=== PATIENT | male | born 1950 | race American Indian/Alaskan Native ===

== ENCOUNTER 2020-06-11 19:09 | Emergency (ER) | payer MEDICARE ==
--- NOTE | 2020-06-11 20:14 | Emergency Department Report ---
ED General Adult HPI - General Chief complaint: Pain General Stated complaint: LEG PAIN Time Seen by Provider: 06/11/20 20:01 Source: patient, EMS Mode of arrival: Stretcher Limitations: Physical Limitation - History of Present Illness Initial comments: Chief complaint: "I have been having spasms for the last 2 weeks." HPI: This is a 69-year-old male with history of hypertension, gout, diabetes mellitus who presents with muscle spasms and bone pain for the past 2 weeks. He has been bedbound for the last 3 to 4 days. He also has had hiccups for the past several days. He denies fever. He does have chills. He denies chest pain shortness of breath abdominal pain. He arrives via EMS. PCP Dr. Moncho Troncoso [facility] -: Gradual, week(s) (2 weeks) Location: left, right, upper extremity, lower extremity Severity scale (0 -10): 6 Quality: other (Muscle spasms, bone pain) Consistency: constant Improves with: none Worsens with: other (Worse with touch his extremities are very tender to touch) Associated Symptoms: malaise, other (Hiccups) Treatments Prior to Arrival: none - Related Data Allergies Allergy/AdvReac Type Severity Reaction Status Date / Time No Known Allergies Allergy Verified 06/11/20 22:42 ED Review of Systems ROS: Stated complaint: LEG PAIN Other details as noted in HPI Comment: All other systems reviewed and negative Constitutional: chills, malaise. denies: fever Respiratory: denies: cough Cardiovascular: denies: chest pain Gastrointestinal: denies: abdominal pain, nausea, vomiting Musculoskeletal: myalgia ED Past Medical Hx - Past Medical History Previous Medical History?: Yes Hx Hypertension: Yes Hx Diabetes: Yes Hx Arthritis: Yes (gout) - Surgical History Past Surgical History?: Yes Additional Surgical History: L hip sx, L knee sx, colostomy, colostomy reversal in 1997 - Social History Smoking Status: Never Smoker Substance Use Type: None ED Physical Exam - General Limitations: Physical Limitation General appearance: alert, in no apparent distress, other (Constant hiccuping) - Head Head exam: Present: atraumatic, normocephalic - Eye Eye exam: Present: normal appearance - ENT ENT exam: Present: mucous membranes dry, other (Very dry mucous membranes without exudates or lesions in the oropharynx) - Neck Neck exam: Present: normal inspection, full ROM - Respiratory Respiratory exam: Present: normal lung sounds bilaterally. Absent: respiratory distress, wheezes, rales, rhonchi - Cardiovascular Cardiovascular Exam: Present: regular rate, normal rhythm, normal heart sounds. Absent: systolic murmur, diastolic murmur, rubs, gallop - GI/Abdominal GI/Abdominal exam: Present: soft, normal bowel sounds. Absent: distended, tenderness, guarding, rebound - Rectal Rectal exam: Present: deferred - Extremities Exam Extremities exam: Present: normal inspection - Neurological Exam Neurological exam: Present: alert, oriented X3 - Psychiatric Psychiatric exam: Present: normal affect, normal mood - Skin Skin exam: Present: warm, dry, intact, normal color. Absent: rash ED Course Vital Signs 06/11/20 06/11/20 06/11/20 19:27 22:54 23:34 Temperature 99.1 F 100.2 F H Pulse Rate 88 94 H Respiratory 16 19 16 Rate Blood Pressure 151/74 146/64 [Left] O2 Sat by Pulse 95 95 Oximetry 06/12/20 06/12/20 00:34 01:38 Temperature 100.2 F H Pulse Rate 98 H Respiratory 16 19 Rate Blood Pressure 122/80 [Left] O2 Sat by Pulse 96 Oximetry ED Medical Decision Making - Lab Data Result diagrams: 06/11/20 20:25 06/11/20 20:25 Laboratory Results - last 24 hr 06/11/20 06/11/20 06/11/20 20:25 20:25 20:25 WBC 19.9 H RBC 3.18 L Hgb 9.1 L Hct 28.7 L MCV 90 MCH 29 MCHC 32 RDW 18.3 H Plt Count 221 Lymph % (Auto) 6.8 L [place] % (Auto) 8.0 H Eos % (Auto) 0.1 Baso % (Auto) 0.2 Lymph # (Auto) 1.3 [place] # (Auto) 1.6 H Eos # (Auto) 0.0 Baso # (Auto) 0.0 Seg Neutrophils % 84.9 H Seg Neutrophils # 16.9 H Sodium 136 L Potassium 4.1 Chloride 100.3 Carbon Dioxide 19 L Anion Gap 21 BUN 65 H Creatinine 2.0 H Estimated GFR 33 BUN/Creatinine Ratio 33 Glucose 173 H Lactic Acid 2.20 H* Calcium 9.1 Total Bilirubin 0.80 AST 76 H ALT 40 Alkaline Phosphatase 112 Ammonia Total Creatine Kinase 2258 H Total Protein 8.3 H Albumin 2.7 L Albumin/Globulin Ratio 0.5 TSH Urine Bilirubin Urine RBC (Auto) U Epithel Cells (Auto) U Marijuana (THC) Screen 06/11/20 06/11/20 06/11/20 20:25 20:25 21:51 WBC RBC Hgb Hct MCV MCH MCHC RDW Plt Count Lymph % (Auto) [place] % (Auto) Eos % (Auto) Baso % (Auto) Lymph # (Auto) [place] # (Auto) Eos # (Auto) Baso # (Auto) Seg Neutrophils % Seg Neutrophils # Sodium Potassium Chloride Carbon Dioxide Anion Gap BUN Creatinine Estimated GFR BUN/Creatinine Ratio Glucose Lactic Acid Calcium Total Bilirubin AST ALT Alkaline Phosphatase Ammonia 73.0 H Total Creatine Kinase Total Protein Albumin Albumin/Globulin Ratio TSH 1.050 Urine Bilirubin Neg Urine RBC (Auto) 11.0 U Epithel Cells (Auto) 1.0 U Marijuana (THC) Screen 06/11/20 21:51 WBC RBC Hgb Hct MCV MCH MCHC RDW Plt Count Lymph % (Auto) [place] % (Auto) Eos % (Auto) Baso % (Auto) Lymph # (Auto) [place] # (Auto) Eos # (Auto) Baso # (Auto) Seg Neutrophils % Seg Neutrophils # Sodium Potassium Chloride Carbon Dioxide Anion Gap BUN Creatinine Estimated GFR BUN/Creatinine Ratio Glucose Lactic Acid Calcium Total Bilirubin AST ALT Alkaline Phosphatase Ammonia Total Creatine Kinase Total Protein Albumin Albumin/Globulin Ratio TSH Urine Bilirubin Urine RBC (Auto) U Epithel Cells (Auto) U Marijuana (THC) Screen Presumptive positive - Radiology Data Radiology results: report reviewed CT scan of the chest, abdomen, and pelvis without contrast INDICATION: malaise, hiccups, body aches. TECHNIQUE: All CT scans at this location are performed using the following dose modulation technique: Automated exposure control. Helical slices were obtained through the chest, abdomen, and pelvis. No contrast is administered. COMPARISON: None available. FINDINGS: Chest: There is mild dependent atelectasis on the right. The lungs are otherwise clear. There is no pneumothorax. On review of the mediastinum, there is no adenopathy. The heart size is normal. ABDOMEN: The liver, spleen, pancreas, adrenal glands, and right kidney show no acute abnormality. There are staghorn type calculi in the left kidney with calculi noted in calyces in the upper and lower pole. There is a 2.5 x 1.5 cm stone in the renal pelvis extending down to the ureteropelvic junction. There are no ureteral calculi. There are 2 ventral hernias above the level the umbilicus. These contain loops of small bowel. There is no obstruction or complication associated with these. There is bowel anastomosis on the left. There is no obstruction, inflammation, or free air. There are no abnormal fluid collections. Pelvis: There is no obstruction or inflammation. There are no abnormal fluid collections. On review of bone windows, no acute osseous abnormalities are seen. Degenerative changes are noted in the lower lumbar spine as well as in the lower cervical spine and both shoulders and hips. IMPRESSION: There are staghorn calculi noted in the left kidney there is mild dilatation of the left renal collecting system. There is a staghorn calculus in the left renal pelvis which extends to the ureteropelvic junction. There are 2 small ventral hernias containing loops of small bowel. There is no obstruction or complication associated with this. There is a small amount of atelectasis in the right lung base. CHEST 1 VIEW 06/11/2020 7:38 PM INDICATION / CLINICAL INFORMATION: Altered Mental Status. COMPARISON: None available. FINDINGS: SUPPORT DEVICES: None. HEART / MEDIASTINUM: No significant abnormality. LUNGS / PLEURA: No significant pulmonary or pleural abnormality. No pneumothorax. ADDITIONAL FINDINGS: No significant additional findings. IMPRESSION: 1. No acute findings. - Medical Decision Making Mr. Rojas presents with chills, muscle spasms, bone pain. Developed low- grade temperature here in the emergency department. I suspect sepsis due to infected stone. Patient has staghorn calculus with mild dilatation of the left renal collecting system. Next Patient received cefepime. Elevated CK likely reflective of patient's immobile status due to illness. I spoke with [facility] on-call outpatient physician who was unable to expedite transfer. 1. Infected stone staghorn calculus left kidney: Patient received IV cefepime 2. Acute prerenal injury due to vasomotor nephropathy, sepsis: Patient received IV fluid therapy, 3. Rhabdomyolysis: IV fluid therapy initiated, etiologies: Sepsis, immobility 4. Anemia: Patient denies bloody or dark stools. Unclear chronicity. I spoke with [facility] center nurse after requesting [facility]. Urologist on-call refused transfer. I spoke with Dr. Corley urologist [place] who recommended transfer to [facility] for nephrostomy tube insertion. 60 minutes of critical care time excluding procedures were used in the care of the patient. I came immediately to the bedside upon patient's arrival. . I discussed treatment plan with the nursing team members. I reviewed electronic record. Patient required multiple interventions and reassessments. I spoke with multiple consultants as well as the transfer center nurse in order to expedite care. I was concerned for potential septic shock. Fortunately patient did not develop hypotension. Patient will be transferred to [facility] ER accepting ER physician Dr. Huang Critical care attestation.: If time is entered above; I have spent that time in minutes in the direct care of this critically ill patient, excluding procedure time. ED Disposition Clinical Impression: Staghorn renal calculus, Complicated UTI (urinary tract infection), Calculous pyelonephritis, Acute kidney injury, Rhabdomyolysis, Anemia, Sepsis, Decubitus ulcer of buttock, stage 1 Disposition: [id number]/TX-[id number] ANOTHER TYPE HLTHCARE Is pt being admited?: No Does the pt Need Aspirin: No Condition: Stable
[2020-06-11] MEDS ORDERED: SODIUM CHLORIDE 0.9% 1000 ML 1,000 ML IV ONE ×2 (20:15→21:41)
--- NOTE | 2020-06-11 20:50 | XRay Report ---
CHEST 1 VIEW 06/11/2020 7:38 PM INDICATION / CLINICAL INFORMATION: Altered Mental Status. COMPARISON: None available. FINDINGS: SUPPORT DEVICES: None. HEART / MEDIASTINUM: No significant abnormality. LUNGS / PLEURA: No significant pulmonary or pleural abnormality. No pneumothorax. ADDITIONAL FINDINGS: No significant additional findings. IMPRESSION: 1. No acute findings. Signer Name: Panda Zhao MD Signed: 06/11/2020 8:45 PM Workstation Name: [id number]
[2020-06-11 20:56] LABS: Basophils % (Auto) 0.2 % (0.0-1.8); Eosinophils % (Auto) 0.1 % (0.0-4.3); Hematocrit 28.7 % (35.5-45.6); Hemoglobin 9.1 gm/dl (11.8-15.2); Lymphocytes # (Auto) 1.3 K/mm3 (1.2-5.4); Lymphocytes % (Auto) 6.8 % (13.4-35.0); Mean Corpuscular HGB Conc 32 % (32-34); Mean Corpuscular Volume 90 fl (84-94); Monocytes # (Auto) 1.6 K/mm3 (0.0-0.8); Platelet Count 221 K/mm3 (140-440); Red Blood Count 3.18 M/mm3 (3.65-5.03); Red Cell Distribution Width 18.3 % (13.2-15.2)
[2020-06-11 20:57] LABS: Albumin 2.7 g/dL (3.9-5); Calcium 9.1 mg/dL (8.4-10.2)
--- NOTE | 2020-06-11 21:19 | Cat Scan Report ---
CT scan of the chest, abdomen, and pelvis without contrast INDICATION: malaise, hiccups, body aches. TECHNIQUE: All CT scans at this location are performed using the following dose modulation technique: Automated exposure control. Helical slices were obtained through the chest, abdomen, and pelvis. No contrast is administered. COMPARISON: None available. FINDINGS: Chest: There is mild dependent atelectasis on the right. The lungs are otherwise clear. There is no p neumothorax. On review of the mediastinum, there is no adenopathy. The heart size is normal. ABDOMEN: The liver, spleen, pancreas, adrenal glands, and right kidney show no acute abnormality. The re are staghorn type calculi in the left kidney with calculi noted in calyces in the upper and lower pole. There is a 2.5 x 1.5 cm stone in the renal pelvis extending down to the ureteropelvic junction. There are no ureteral calculi. There are 2 ventral hernias above the level the umbilicus. These contain loops of small bowel. There is no obstruction or complication associated with these. There is bowel anastomosis on the left. There is no obstruction, inflammation, or free air. There are no abnormal fluid collections. Pelvis: There is no obstruction or inflammation. There are no abnormal fluid collections. On review of bone windows, no acute osseous abnormalities are seen. Degenerative changes are noted in the lower lumbar spine as well as in the lower cervical spine and both shoulders and hips. IMPRESSION: There are staghorn calculi noted in the left kidney there is mild dilatation of the left renal collec ting system. There is a staghorn calculus in the left renal pelvis which extends to the ureteropelvic junction. There are 2 small ventral hernias containing loops of small bowel. There is no obstruction or complic ation associated with this. There is a small amount of atelectasis in the right lung base. Signer Name: Panda Zhao MD Signed: 06/11/2020 9:14 PM Workstation Name: [id number]
[2020-06-11 22:07] LABS: Bacteria,Urine 2+ /HPF (Negative); Bilirubin,Urine NEG (Negative); Blood,Urine LG (Negative); Color,Urine Yellow (Yellow); Mucus,Urine 3+ /HPF
[2020-06-11 22:14] LABS: Amphetamine Screen,Urine PRESUMPTIVE NEGATIVE; Benzodiazepines Screen,Urine PRESUMPTIVE NEGATIVE; Cannabinoid Screen,Urine PRESUMPTIVE POSITIVE; Cocaine Screen,Urine PRESUMPTIVE NEGATIVE; Methadone Screen,Urine PRESUMPTIVE NEGATIVE; Opiate Screen,Urine PRESUMPTIVE NEGATIVE
[2020-06-11 22:27] LABS: WBC,Urine > 182.0 /HPF (0.0-6.0)
[2020-06-11] MEDS ORDERED: CEFEPIME/NS 2 GM/100 ML 2 GM/100 ML BAG IV SCH (23:00)
[2020-06-11] MEDS ORDERED: ACETAMINOPHEN 500 MG TAB PO ONE (23:32)
[2020-06-11] MEDS ORDERED: ACETAMINOPHEN 500 MG TAB ONE (23:32)
[2020-06-12 05:21] VITALS: BP 147/69
== END 2020-06-12 06:50 | disposition other institution (70) ==
LOC: ED 19:09
DX: L89.301 Pressure ulcer of unspecified buttock, stage 1 (principal); A41.9 Sepsis, unspecified organism; D64.9 Anemia, unspecified; M62.82 Rhabdomyolysis; N17.9 Acute kidney failure, unspecified; N20.9 Urinary calculus, unspecified; N39.0 Urinary tract infection, site not specified; I10 Essential (primary) hypertension; E11.9 Type 2 diabetes mellitus without complications; M19.91 Primary osteoarthritis, unspecified site; Z98.890 Other specified postprocedural states
CPT/HCPCS: 36415; 71045; 71250; 74176; 80053; 80307; 81001; 82140; 82550; 84443; 85025; 87040; 87086; 96361; 96365; 99291; J0692; J7030